=== PATIENT | male | born 1950 | race Caucasian/White ===

== ENCOUNTER 2016-07-31 09:46 | Day surgery (SDC) | payer MEDICARE, OTHER ==
[~2016-07-31 09:46] MED LIST: AMBIEN10 MG; ASPIRIN81 M1 PO; CAMBIA50 M1 PO; CELEXA20 M2 PO; DEPAKOTE ER250 M1 PO; DORYX100 MG; EXCEDRIN MIGRAI1 TAB; IMITREX100 MG; LIPITOR10 M1 PO; LYRICA50 MG/CAP PO; OMEPRAZOLE20 M4 PO; TOPAMAX25 MG; TRAZODONE HCL50 M1 PO; ZYRTEC10 M7 PO
[2016-07-31 11:01] LABS: BASO % 0.8 % (0-2); EOS % 2.5 % (0-7); EOSINOPHIL ABSOLUTE COUNT 0.1 tho/cmm (0.0-0.7); HCT-HEMATOCRIT 37.9 % (36.0-53.5); HGB-HEMOGLOBIN 11.5 gm/dl (13.5-17.0); IMMATURE GRANULOCYTES ABSOLUTE 0.01 tho/cmm (0-0.03); IMMATURE GRANULOCYTES PERCENT 0.3 % (0-0.3); LYMPH % 24.2 % (20-45); LYMPH ABSOLUTE COUNT 0.9 tho/cmm (0.8-4.5); MCH (MEAN CORPUSCULAR HGB) 22.6 pg (28.0-32.0); MCHC MEAN CORPUSCULAR HGB CONC 30.3 % (32.0-36.0); MCV (MEAN CELL VOLUME) 74.6 fl (82.0-96.0); MONO % 11.5 % (0-12); MONOCYTE ABSOLUTE COUNT 0.4 tho/cmm (0.0-1.2); NEUTROPHIL ABSOLUTE COUNT 2.2 tho/cmm (1.6-8.0); NEUTROPHIL-AUTOMATED 2.2 tho/cmm (1.6-8.0); NEUTROPHILS % 60.7 % (40-80); PLATELET COUNT 144 tho/cmm (150-450); RED BLOOD COUNT 5.08 mil/cmm (4.40-5.70); WHITE BLOOD COUNT 3.6 tho/cmm (4.0-10.0)
[2016-07-31 11:08] LABS: INR 1.1 INR (0.9-1.1)
== END 2016-07-31 15:25 ==
LOC: RADSP 09:46 → SHSC 09:50
PROVIDERS: Radiology Diagnostic Radiology
PROC: B02B1ZZ Computerized Tomography (CT Scan) of Spinal Cord using Low Osmolar Contrast (ICD-10-PCS; principal; 2016-07-31)
DX: G62.9 Polyneuropathy, unspecified (principal); M54.9 Dorsalgia, unspecified; Z79.82 Long term (current) use of aspirin; Z79.899 Other long term (current) drug therapy; Z87.891 Personal history of nicotine dependence; Z98.890 Other specified postprocedural states
CPT/HCPCS: J7030